=== PATIENT | female | born 1970 | race African-American/Black ===

== ENCOUNTER 2016-12-02 14:38 | Emergency (ER) | payer MEDICAID ==
[~2016-12-02] VITALS: Ht 162.6 cm; Wt 77.0 kg
[2016-12-02] MEDS ORDERED: ACETAMINOPHEN WITH CODEINE 300/30MG TABLET PO STA (16:41)
[2016-12-02 17:23] LABS: BASOPHILS % 0.9 % (0.0-2.0); HEMATOCRIT. 33.8 % (36.0-48.0); HEMOGLOBIN. 10.8 g/dL (12.0-16.0); LYMPHOCYTES % 34.2 % (20.0-50.0); MEAN CORPUSCULAR HEMOGLOBIN 25.8 pg (28.0-32.0); MEAN CORPUSCULAR HGB CONC 32.1 g/dL (31.0-37.0); MEAN CORPUSCULAR VOLUME 80.5 fL (81.0-99.0); MEAN PLATELET VOLUME 8.4 fl (7.4-10.4); NEUTROPHILS % 49.9 % (40.0-76.0); PLATELET 212 x1000/uL (130-400); RED CELL DISTRIBUTION WIDTH 15.1 % (11.6-14.6); WHITE BLOOD COUNT 4.1 x1000/uL (4.5-11.0)
[2016-12-02 17:28] LABS: CHLORIDE 105 mEq/L (98-107); INDEX HEMOLYSI 1 (1-3); INDEX ICTERIC 1 (1-4); INDEX LIPEMIC 1 (1-3)
[2016-12-02 17:29] LABS: PROTHROMBIN TIME 10.5 sec
[2016-12-02 17:39] LABS: ALANINE AMINOTRANSFERASE 22 IU/L (13-61); ALBUMIN 3.4 g/dL (3.4-5.0); ANION GAP 12; CALCIUM 8.4 mg/dL (8.5-10.1); CARBON DIOXIDE 28 mEq/L (21-32); NT PRO B-TYPE NATRIURETIC PEP 106 pg/mL (5-125); UREA NITROGEN BLOOD 11 mg/dL (7-21); eGFR > 60 mL/min (>60)
[2016-12-02 19:20] VITALS: BP 117/80
== END 2016-12-02 20:25 | disposition home or self-care (01) ==
LOC: ER 14:38
DX: R60.9 Edema, unspecified (principal)
CPT/HCPCS: 36415; 71010; 80053; 83880; 85025; 85610; 93970; 99285; Z7610

== ENCOUNTER 2017-04-20 20:19 | Inpatient (IN) | payer MEDICAID, OTHER ==
[~2017-04-20] VITALS: Ht 160 cm; Wt 90.3 kg
[2017-04-20] MEDS ORDERED: ONDANSETRON HCL 4MG/2ML VIAL IV STA (21:27)
[2017-04-20] MEDS ORDERED: HYDROCODONE/ACETAMINOPHEN 5/325MG TABLET PO STA (21:27)
[2017-04-20 21:57] LABS: BASOPHILS % 0.4 % (0.0-2.0); EOSINOPHILS % 0.3 % (0.0-5.0); HEMATOCRIT. 32.3 % (36.0-48.0); HEMOGLOBIN. 10.4 g/dL (12.0-16.0); LYMPHOCYTES % 15.5 % (20.0-50.0); MEAN CORPUSCULAR HEMOGLOBIN 24.4 pg (28.0-32.0); MEAN CORPUSCULAR VOLUME 76.1 fL (81.0-99.0); MEAN PLATELET VOLUME 8.3 fl (7.4-10.4); MONOCYTES % 5.2 % (2.0-8.0); NEUTROPHILS % 78.6 % (40.0-76.0); PLATELET 285 x1000/uL (130-400); RED BLOOD CELL COUNT 4.25 mill/uL (4.2-5.4); RED CELL DISTRIBUTION WIDTH 16.9 % (11.6-14.6)
[2017-04-20 22:00] LABS: PROTHROMBIN TIME 10.6 sec (9.4-11.6)
[2017-04-20 22:02] LABS: HCG SCREEN NEGATIVE
[2017-04-20 22:09] LABS: CARBON DIOXIDE 27 mEq/L (21-32); CHLORIDE 107 mEq/L (98-107); TROPONIN I < 0.02 ng/mL (0.00-0.04)
[2017-04-21] VITALS (7 sets, daily range): BP systolic 103–134; BP diastolic 55–85
[2017-04-21] MEDS ORDERED: METOCLOPRAMIDE HCL 10MG/2ML VIAL IV ONE
[2017-04-21] MEDS ORDERED: KETOROLAC 30MG/ML VIAL IV ONE
[2017-04-21] MEDS ORDERED: SODIUM CHLORIDE 0.9% IV ONE (00:01)
[2017-04-21] MEDS ORDERED: ONDANSETRON HCL 4MG/2ML VIAL IV PRN (03:30)
[2017-04-21] MEDS ORDERED: DOCUSATE SODIUM 100MG CAPSULE PO PRN (03:30)
[2017-04-21] MEDS ORDERED: MAGNESIUM/ALUMINUM HYDROXIDE/SIMETHICONE 30ML UDC PO PRN (03:30)
[2017-04-21] MEDS ORDERED: CLONIDINE 0.1MG TABLET PO PRN (03:30)
[2017-04-21] MEDS ORDERED: ACETAMINOPHEN 325MG TABLET PO PRN (03:30)
[2017-04-21] MEDS ORDERED: ZOLP5TAB2 PO (03:54)
[2017-04-21] MEDS: HYDROCODONE/ACETAMINOPHEN 5/325MG TABLET PO PRN ×4 (03:56→21:09)
[2017-04-21] MEDS: SODIUM CHLORIDE 0.9% 1,000 ML IV SCH ×2 (04:24→17:29)
[2017-04-21] MEDS: ASPIRIN 81MG EC TABLET PO SCH (09:00)
[2017-04-21 10:17] LABS: CREATINE KINASE 54 IU/L (26-192); TROPONIN I < 0.02 ng/mL (0.00-0.04)
[2017-04-21 17:02] LABS: CREATINE KINASE 64 IU/L (26-192); TROPONIN I < 0.02 ng/mL (0.00-0.04)
[2017-04-21] MEDS: HYDROMORPHONE HCL/PF 2MG/ML CPJ IV PRN (17:30)
[2017-04-22] VITALS (7 sets, daily range): BP systolic 99–143; BP diastolic 58–87
[2017-04-22] MEDS: HYDROMORPHONE HCL/PF 2MG/ML CPJ IV PRN ×4 (00:07→17:31)
[2017-04-22] MEDS: HYDROCODONE/ACETAMINOPHEN 5/325MG TABLET PO PRN ×2 (02:49→16:01)
[2017-04-22] MEDS: SODIUM CHLORIDE 0.9% 1,000 ML IV SCH (06:13)
[2017-04-22 07:38] LABS: BASOPHILS % 0.5 % (0.0-2.0); EOSINOPHILS % 0.9 % (0.0-5.0); HEMATOCRIT. 30.2 % (36.0-48.0); HEMOGLOBIN. 9.8 g/dL (12.0-16.0); MEAN CORPUSCULAR HEMOGLOBIN 24.9 pg (28.0-32.0); MEAN CORPUSCULAR VOLUME 76.9 fL (81.0-99.0); MEAN PLATELET VOLUME 8.6 fl (7.4-10.4); MONOCYTES % 7.6 % (2.0-8.0); PLATELET 240 x1000/uL (130-400); RED BLOOD CELL COUNT 3.93 mill/uL (4.2-5.4); RED CELL DISTRIBUTION WIDTH 17.2 % (11.6-14.6)
[2017-04-22] MEDS: ASPIRIN 81MG EC TABLET PO SCH (08:06)
[2017-04-22 08:10] LABS: CARBON DIOXIDE 28 mEq/L (21-32); CHLORIDE 107 mEq/L (98-107)
[2017-04-22 08:18] LABS: HDL CHOLESTEROL 43 mg/dL (40-59); LDL CHOLESTEROL 86 mg/dL (5-100); T4 FREE 0.91 ng/dL (0.76-1.46)
[2017-04-22] MEDS ORDERED: HYDR-523 PO (14:07)
== END 2017-04-22 18:40 | disposition home or self-care (01) | DRG 663 ==
LOC: ER 20:55 → 5WST 04-21 00:23 → ENRESERV 04-21 01:52
PROVIDERS: ADMIT Hospitalist; ATTEND Hospitalist
DX: D64.9 Anemia, unspecified (principal); R55 Syncope and collapse; R51 Headache; K80.20 Calculus of gallbladder without cholecystitis without obstruction; M50.80 Other cervical disc disorders, unspecified cervical region; Z98.84 Bariatric surgery status; Z98.891 History of uterine scar from previous surgery
CPT/HCPCS: 36415; 70450; 71010; 72141; 72146; 80053; 80061; 82550; 83880; 84439; 84443; 84484; 84703; 85025; 85610; 93005; 93970; 96374; 96375; 96376; 99285; J1170; J1885; J2405; J2765; J7030; J7040

== ENCOUNTER 2023-08-25 12:08 | Emergency (ER) | payer MEDICAID, OTHER ==
[~2023-08-25] VITALS: Ht 160 cm; Wt 59.0 kg
[~2023-08-25 12:08] MED LIST: DIPH25CA83 PO; HYDR4TAB4 PO; MORP15TA67 PO; TOPA25 PO; ZOLP5TAB2 PO
[2023-08-25 12:23] VITALS: BP 159/92; PULSE 97; RESP 16; TEMP 98.2; O2SAT 100
== END 2023-08-25 13:04 | disposition left against medical advice (07) ==
LOC: ER 12:08
DX: R07.89 Other chest pain (principal); Z53.21 Procedure and treatment not carried out due to patient leaving prior to being seen by health care provider
CPT/HCPCS: 93005; 99281

== ENCOUNTER 2024-02-26 18:28 | Emergency (ER) | payer OTHER ==
[~2024-02-26] VITALS: Ht 157.5 cm; Wt 61.0 kg
[2024-02-26 18:45] VITALS: O2SAT 100
[2024-02-26] MEDS ORDERED: ACETAMINOPHEN 325MG TABLET PO ONE (19:00)
[2024-02-26 19:48] VITALS: BP 142/95; PULSE 81; RESP 18
[2024-02-26] MEDS: HYDROCODONE/ACETAMINOPHEN 10/325MG TABLET PO ONE (19:48)
[2024-02-26 20:00] VITALS: TEMP 98.8
[2024-02-26] MEDS: ACETAMINOPHEN 325MG TABLET PO NR (20:00)
[2024-02-26] MEDS ORDERED: HYDR4TAB4 PO (20:09)
== END 2024-02-26 20:43 | disposition home or self-care (01) ==
LOC: ER 18:28
DX: S20.212A Contusion of left front wall of thorax, initial encounter (principal); S09.90XA Unspecified injury of head, initial encounter; Z91.011 Allergy to milk products; Z88.6 Allergy status to analgesic agent; Z98.890 Other specified postprocedural states; Y04.0XXA Assault by unarmed brawl or fight, initial encounter; Y93.89 Activity, other specified; Y92.89 Other specified places as the place of occurrence of the external cause; Y99.8 Other external cause status
CPT/HCPCS: 71045; 99283